=== PATIENT | female | born 1955 | race Caucasian/White ===

== ENCOUNTER 2017-08-09 19:51 | Emergency (ER) | payer MEDICARE ==
[~2017-08-09] VITALS: Ht 170.2 cm; Wt 56.8 kg
[~2017-08-09 19:51] MED LIST: GABAPENTIN 300 MG; MORPHINE 30 MG; THYROXINE 50 MCG; [UNRECOGNIZED DRUG - CODE]; [UNRECOGNIZED DRUG - OTHER]
[2017-08-09] MEDS ORDERED: normal saline 1000ML IV soln IVB ONE (20:25)
[2017-08-09] MEDS ORDERED: MORPHINE 2MG in 2ml NS syringe IV PRN (20:25)
[2017-08-09] MEDS ORDERED: ondansetron/PF 4mg/2ml inj IV ONE (20:25)
[2017-08-09 20:28] LABS: BASOPHILS # (AUTO) 0.1 X10'3 (0-0.2); BASOPHILS % (AUTO) 0.6 % (0-1); EOSINOPHILS # (AUTO) 0.1 X10'3 (0-0.9); EOSINOPHILS % (AUTO) 1.1 % (0-6); HEMATOCRIT 35.6 % (35.0-45.0); HEMOGLOBIN 12.1 g/dl (12.0-16.0); LYMPHOCYTES # (AUTO) 2.2 X10'3 (1.1-4.8); LYMPHOCYTES % (AUTO) 15.8 % (21-51); MEAN CORPUSCULAR HEMOGLOBIN 32.7 PG (27.0-31.0); MEAN CORPUSCULAR HGB CONC 34.1 % (33.0-36.5); MEAN CORPUSCULAR VOLUME 95.9 FL (78-98); MEAN PLATELET VOLUME 6.4 FL (7.4-10.4); MONOCYTES # (AUTO) 0.4 X10'3 (0-0.9); MONOCYTES % (AUTO) 3.2 % (2-12); NEUTROPHILS # (AUTO) 11.1 X10'3 (1.8-7.7); NEUTROPHILS % (AUTO) 79.3 % (42-75); PLATELET COUNT 259 X10'3 (140-440); RED BLOOD COUNT 3.71 X10'6 (4.20-5.60)
[2017-08-09] MEDS ORDERED: morphine 4 MG/ML inj SYRINge IV PRN (20:34)
[2017-08-09 20:37] LABS: INR 0.9 INR; PROTHROMBIN TIME 9.6 SECONDS (9.0-12.0)
[2017-08-09 20:44] LABS: ALANINE AMINOTRANSFERASE 24 U/L (12-78); ALBUMIN 3.1 G/DL (3.4-5.0); ALKALINE PHOSPHATASE 85 IU/L (46-116); ANION GAP 8 (8-16); ASPARTATE AMINO TRANSFERASE 23 U/L (10-37); BILIRUBIN,TOTAL 0.2 MG/DL (0.1-1.0); BLOOD UREA NITROGEN 9 MG/DL (7-18); BUN/CREATININE RATIO 12.2 (6.6-38.0); CALCIUM 8.2 MG/DL (8.5-10.1); CHLORIDE 107 MMOL/L (99-107); CREATININE 0.74 MG/DL (0.40-0.90); GLUCOSE 90 MG/DL (70-104); LIPASE 328 U/L (73-393); POTASSIUM 3.1 MMOL/L (3.5-5.1); SODIUM 143 MMOL/L (135-145); TOTAL CARBON DIOXIDE 28.4 MMOL/L (24-32); TOTAL PROTEIN 6.3 G/DL (6.4-8.2); eGFR 80 ML/MIN
[2017-08-09] MEDS ORDERED: ketorolac trometh. 30mg/ml inj. IV ONE (22:10)
[2017-08-09] MEDS ORDERED: KETO10TA2 PO (22:14)
[2017-08-09] MEDS ORDERED: HYDR-565 PO (22:14)
[2017-08-09] MEDS ORDERED: ONDA8TAB9 PO (22:14)
[2017-08-09 22:23] LABS: CLARITY,URINE CLEAR (Clear); COLOR,URINE STRAW (Yellow); GLUCOSE, URINE NEGATIVE (Neg); KETONES,URINE NEGATIVE (Neg); LEUKOCYTE ESTERASE ,URINE NEGATIVE (Neg); NITRITES, URINE NEGATIVE (Neg); OCCULT BLOOD,URINE MODERATE (Neg); PH,URINE 5.5 (4.8-8.0); PROTEIN,URINE NEGATIVE (Neg); UROBILINOGEN,URINE 0.2 E.U/dL (0.2-1.0)
[2017-08-09 22:24] LABS: UA COLLECTION TYPE CLN CATCH MIDSTREAM
[2017-08-09] MEDS ORDERED: NITR100C6 PO (22:24)
[2017-08-09 22:28] LABS: BACTERIA,URINE FEW /HPF (Neg); HYALINE CASTS 0-3 /LPF (NEGATIVE); MUCUS STRANDS FEW /LPF (Neg); RBC,URINE 0-2 /HPF (0-2); SQUAMOUS EPITHELIAL CELL,UR FEW /LPF (FEW); WBC,URINE 0-4 /HPF (0-4)
[2017-08-09 23:22] VITALS: BP 101/62
== END 2017-08-09 23:32 | disposition home or self-care (01) ==
LOC: ER 19:51
DX: N23 Unspecified renal colic (principal); N20.1 Calculus of ureter; G43.909 Migraine, unspecified, not intractable, without status migrainosus; J45.909 Unspecified asthma, uncomplicated; G89.29 Other chronic pain; Z98.890 Other specified postprocedural states; Z56.0 Unemployment, unspecified; Z88.2 Allergy status to sulfonamides; Z88.0 Allergy status to penicillin; Z91.013 Allergy to seafood; Z79.899 Other long term (current) drug therapy
CPT/HCPCS: 36415; 71045; 74176; 80053; 81001; 83690; 85025; 85610; 96361; 96374; 96375; 99285; J1885; J2270; J2405; J7030

== ENCOUNTER → 2017-10-21 | Emergency (ER) | payer MEDICARE ==
[~2017-10-21] VITALS: Ht 170.2 cm; Wt 56.0 kg
[~2017-10-21] MED LIST changes: +HYDROcodone/acetaminophen 5mg/325mg tablet PO ONE; +IBUP-1986 PO; +KETO10TA2 PO; +NITR100C6 PO; +ONDA8TAB9 PO
[2017-10-21 23:06] VITALS: BP 117/62
== END | disposition home or self-care (01) ==
LOC: ER 21:30
DX: S96.912A Strain of unspecified muscle and tendon at ankle and foot level, left foot, initial encounter (principal); G43.909 Migraine, unspecified, not intractable, without status migrainosus; J45.909 Unspecified asthma, uncomplicated; G89.29 Other chronic pain; Z90.49 Acquired absence of other specified parts of digestive tract; Z90.710 Acquired absence of both cervix and uterus; Z98.890 Other specified postprocedural states; Z56.0 Unemployment, unspecified; Z91.013 Allergy to seafood; Z88.2 Allergy status to sulfonamides; Z88.0 Allergy status to penicillin; Z88.8 Allergy status to other drugs, medicaments and biological substances; Z79.899 Other long term (current) drug therapy; W18.39XA Other fall on same level, initial encounter; Y93.01 Activity, walking, marching and hiking; Y92.89 Other specified places as the place of occurrence of the external cause; Y99.8 Other external cause status
CPT/HCPCS: 29515; 73630; 99284

== ENCOUNTER 2018-01-08 11:43 | Emergency (ER) | payer MEDICARE ==
[~2018-01-08] VITALS: Ht 170.2 cm; Wt 54.7 kg
[~2018-01-08 11:43] MED LIST changes: -HYDROcodone/acetaminophen 5mg/325mg tablet PO ONE
[2018-01-08] MEDS ORDERED: normal saline 1000ml 1,000 ML IV ONE (13:15)
[2018-01-08] MEDS ORDERED: ketorolac trometh. 30mg/ml inj. IV ONE (13:15)
[2018-01-08] MEDS ORDERED: metoclopramide 5 mg/ml inj IV ONE (13:15)
[2018-01-08] MEDS ORDERED: diphenhydrAMINE 50 mg/ml inj IV ONE (13:15)
[2018-01-08] MEDS ORDERED: acetaminophen 325mg tablet PO ONE (14:05)
[2018-01-08 14:46] VITALS: BP 115/60
== END 2018-01-08 14:45 | disposition home or self-care (01) ==
LOC: ER 11:43
DX: G43.909 Migraine, unspecified, not intractable, without status migrainosus (principal); H53.149 Visual discomfort, unspecified; J45.909 Unspecified asthma, uncomplicated; G89.29 Other chronic pain; Z90.49 Acquired absence of other specified parts of digestive tract; Z90.710 Acquired absence of both cervix and uterus; Z98.890 Other specified postprocedural states; Z56.0 Unemployment, unspecified; Z88.2 Allergy status to sulfonamides; Z88.0 Allergy status to penicillin; Z88.8 Allergy status to other drugs, medicaments and biological substances; Z91.013 Allergy to seafood; Z79.899 Other long term (current) drug therapy
CPT/HCPCS: 96374; 96375; 99284; J1200; J1885; J2765; J7030

== ENCOUNTER 2018-02-04 12:06 | Inpatient (IN) | payer MEDICARE ==
[~2018-02-04] VITALS: Ht 170.2 cm; Wt 56.8 kg
[2018-02-04] MEDS ORDERED: methylPREDNISolone sod succ 125mg/2ml vial IV ONE (12:10)
[2018-02-04] MEDS ORDERED: albuterol 2.5 MG/3 ML nebule CONTNEB PRN (12:10)
[2018-02-04 12:51] LABS: BASOPHILS % (AUTO) 0.2 % (0-1); EOSINOPHILS % (AUTO) 0.1 % (0-6); HEMATOCRIT 39.2 % (35.0-45.0); HEMOGLOBIN 12.9 g/dl (12.0-16.0); LYMPHOCYTES # (AUTO) 1.1 X10'3 (1.1-4.8); LYMPHOCYTES % (AUTO) 11.5 % (21-51); MEAN CORPUSCULAR HGB CONC 32.9 % (33.0-36.5); MEAN CORPUSCULAR VOLUME 97.2 FL (78-98); MEAN PLATELET VOLUME 6.7 FL (7.4-10.4); MONOCYTES # (AUTO) 0.2 X10'3 (0-0.9); MONOCYTES % (AUTO) 2.1 % (2-12); NEUTROPHILS # (AUTO) 8.2 X10'3 (1.8-7.7); NEUTROPHILS % (AUTO) 86.1 % (42-75); PLATELET COUNT 319 X10'3 (140-440); RED BLOOD COUNT 4.03 X10'6 (4.20-5.60); RED CELL DISTRIBUTION WIDTH 15.2 % (11.5-14.5); WHITE BLOOD COUNT 9.5 X10'3 (4.5-11.0)
[2018-02-04] MEDS ORDERED: levoFLOXACIN-Levaquin 750MG/D5 150 ML IV ONE (12:55)
[2018-02-04 13:09] LABS: ALANINE AMINOTRANSFERASE 25 U/L (12-78); ALBUMIN 3.6 G/DL (3.4-5.0); ALBUMIN/GLOBULIN RATIO 0.8 (1.1-1.5); ALKALINE PHOSPHATASE 109 IU/L (46-116); ANION GAP 11 (8-16); ASPARTATE AMINO TRANSFERASE 15 U/L (10-37); BILIRUBIN,TOTAL 0.3 MG/DL (0.1-1.0); BLOOD UREA NITROGEN 7 MG/DL (7-18); BUN/CREATININE RATIO 9.7 (6.6-38.0); CALCIUM 9.4 MG/DL (8.5-10.1); CHLORIDE 105 MMOL/L (99-107); CREATININE 0.72 MG/DL (0.40-0.90); GLUCOSE 125 MG/DL (70-104); POTASSIUM 3.8 MMOL/L (3.5-5.1); SODIUM 143 MMOL/L (135-145); TOTAL CARBON DIOXIDE 27.5 MMOL/L (24-32); TOTAL PROTEIN 7.9 G/DL (6.4-8.2); eGFR 82 ML/MIN
[2018-02-04 13:36] LABS: INR < 0.9 INR; PARTIAL THROMBOPLASTIN TIME 26 SECONDS (22-32); PROTHROMBIN TIME 9.3 SECONDS (9.0-12.0)
[2018-02-04] MEDS ORDERED: magnesium hydroxide 30ml (MOM) UD suspension PO PRN (14:25)
[2018-02-04] MEDS ORDERED: nicotine 14mg patch - 24hr TD ONE (14:25)
[2018-02-04] MEDS ORDERED: magnesium 1gm/100ml D5W IVPB 100 ML IV PRN (14:25)
[2018-02-04] MEDS ORDERED: acetaminophen 325mg tablet PO PRN (14:25)
[2018-02-04] MEDS ORDERED: potassium Cl 20 mEq SR tablet PO PRN ×2 (14:25)
[2018-02-04] MEDS ORDERED: mag hydrox/Alum hydrox/simeth 30ml oral suspension PO PRN (14:25)
[2018-02-04] MEDS ORDERED: magnesium 4gm in 100ml NS 100 ML IV PRN (14:25)
[2018-02-04] MEDS ORDERED: magnesium Cl slow-release 64mg tablet PO PRN (14:25)
[2018-02-04] MEDS ORDERED: potassium Cl 40MEQ/NS 500ml 500 ML IV PRN ×2 (14:25)
[2018-02-04] MEDS: ipratropium/albuterol 3ml nebule NEB PRN ×2 (15:47→20:15)
[2018-02-04 16:16] LABS: URINE AMPHETAMINE SCREEN NEGATIVE (Neg); URINE BARBITUATE SCREEN POSITIVE (Neg); URINE BENZODIAZEPINES SCREEN NEGATIVE (Neg); URINE CANNABINOID SCREEN NEGATIVE (Neg); URINE COCAINE SCREEN NEGATIVE (Neg); URINE METHADONE SCREEN NEGATIVE (Neg); URINE OPIATE SCREEN POSITIVE (Neg); URINE PHENCYCLIDINE SCREEN NEGATIVE (Neg)
[2018-02-04] MEDS ORDERED: LIDO700A32 (18:54)
[2018-02-04] MEDS ORDERED: LEVO25TA2 PO (18:54)
[2018-02-04] MEDS ORDERED: MORP15TA60 PO (18:54)
[2018-02-04] MEDS ORDERED: MORP30TA60 PO (18:54)
[2018-02-04] MEDS ORDERED: HYDR-3972 PO (18:54)
[2018-02-04] MEDS ORDERED: GABA-532 PO ×2 (18:54)
[2018-02-04 19:30] VITALS: BP 108/48
[2018-02-04] MEDS ORDERED: FIOCOC (20:03)
[2018-02-04] MEDS: methylPREDNISolone sod succ/PF 40mg inj. IV SCH (20:52)
[2018-02-04] MEDS ORDERED: gabapentin 300mg capsule PO SCH (21:00)
[2018-02-04] MEDS ORDERED: morphine ER 15mg tablet PO SCH (21:00)
[2018-02-04] MEDS: HYDROcodone/acetaminophen 5mg/325mg tablet PO PRN (21:23)
[2018-02-05] VITALS: BP 96/50
[2018-02-05] MEDS: HYDROcodone/acetaminophen 5mg/325mg tablet PO PRN ×4 (01:51→23:02)
[2018-02-05] MEDS: methylPREDNISolone sod succ/PF 40mg inj. IV SCH ×4 (01:51→20:29)
[2018-02-05] MEDS: ipratropium/albuterol 3ml nebule NEB PRN ×3 (05:41→20:32)
[2018-02-05 06:21] LABS: BASOPHILS % (AUTO) 0.1 % (0-1); EOSINOPHILS # (AUTO) 0.1 X10'3 (0-0.9); EOSINOPHILS % (AUTO) 0.6 % (0-6); HEMATOCRIT 35.7 % (35.0-45.0); HEMOGLOBIN 11.7 g/dl (12.0-16.0); LYMPHOCYTES # (AUTO) 0.8 X10'3 (1.1-4.8); LYMPHOCYTES % (AUTO) 6.9 % (21-51); MEAN CORPUSCULAR HEMOGLOBIN 32.1 PG (27.0-31.0); MEAN CORPUSCULAR HGB CONC 32.8 % (33.0-36.5); MEAN CORPUSCULAR VOLUME 97.8 FL (78-98); MONOCYTES # (AUTO) 0.3 X10'3 (0-0.9); MONOCYTES % (AUTO) 2.6 % (2-12); NEUTROPHILS % (AUTO) 89.8 % (42-75); PLATELET COUNT 293 X10'3 (140-440); RED BLOOD COUNT 3.66 X10'6 (4.20-5.60); RED CELL DISTRIBUTION WIDTH 14.7 % (11.5-14.5); WHITE BLOOD COUNT 11.1 X10'3 (4.5-11.0)
[2018-02-05 07:01] LABS: ALANINE AMINOTRANSFERASE 16 U/L (12-78); ALBUMIN 3.1 G/DL (3.4-5.0); ALBUMIN/GLOBULIN RATIO 0.8 (1.1-1.5); ALKALINE PHOSPHATASE 90 IU/L (46-116); ANION GAP 10 (8-16); ASPARTATE AMINO TRANSFERASE 14 U/L (10-37); BILIRUBIN,TOTAL 0.2 MG/DL (0.1-1.0); BLOOD UREA NITROGEN 13 MG/DL (7-18); BUN/CREATININE RATIO 18.1 (6.6-38.0); CALCIUM 9.2 MG/DL (8.5-10.1); CHLORIDE 104 MMOL/L (99-107); CREATININE 0.72 MG/DL (0.40-0.90); GLUCOSE 135 MG/DL (70-104); MAGNESIUM 2.5 MG/DL (1.5-2.4); POTASSIUM 4.9 MMOL/L (3.5-5.1); SODIUM 142 MMOL/L (135-145); eGFR 82 ML/MIN
[2018-02-05 07:40] VITALS: BP 95/47
[2018-02-05] MEDS: K and/or MAG REPLACEMENT MC SCH (08:00)
[2018-02-05] MEDS: enoxaparin 40mg/0.4ml syringe SUBCUT SCH (08:49)
[2018-02-05] MEDS ORDERED: pneumococcal 23-VAL P-sac vacc 25 mcg/0.5ml vial IMVAC ONE (09:00)
[2018-02-05] MEDS: levoFLOXACIN-Levaquin 750MG/D5 150 ML IV SCH (09:44)
[2018-02-05] MEDS ORDERED: LEVO50TA8 PO (11:07)
[2018-02-05 11:45] VITALS: BP 96/63
[2018-02-05] MEDS ORDERED: HYDROcodone/acetaminophen 10/325mg tab PO PRN (12:30)
[2018-02-05] MEDS: gabapentin 300mg capsule PO SCH (12:53)
[2018-02-05] MEDS: morphine ER 30mg tablet PO SCH (12:53)
[2018-02-05] MEDS: codeine/butalbital/acetaminophen/caffeine capsule PO PRN (14:44)
[2018-02-05 18:00] VITALS: BP 112/59
[2018-02-05] MEDS ORDERED: codeine/butalbital/acetaminophen/caffeine capsule PO ONE (20:10)
[2018-02-05] MEDS ORDERED: morphine ER 15mg tablet PO SCH (21:00)
[2018-02-05] MEDS ORDERED: gabapentin 300mg capsule PO SCH (21:00)
[2018-02-05] MEDS: ondansetron/PF 4mg/2ml inj IV PRN (23:01)
[2018-02-06] VITALS: BP 100/55
[2018-02-06] MEDS: methylPREDNISolone sod succ/PF 40mg inj. IV SCH ×3 (02:30→13:21)
[2018-02-06] MEDS: codeine/butalbital/acetaminophen/caffeine capsule PO PRN (03:18)
[2018-02-06 04:10] LABS: BASOPHILS % (AUTO) 0.2 % (0-1); EOSINOPHILS # (AUTO) 0.2 X10'3 (0-0.9); EOSINOPHILS % (AUTO) 1.4 % (0-6); HEMATOCRIT 33.6 % (35.0-45.0); HEMOGLOBIN 11.2 g/dl (12.0-16.0); LYMPHOCYTES # (AUTO) 1.1 X10'3 (1.1-4.8); LYMPHOCYTES % (AUTO) 7.8 % (21-51); MEAN CORPUSCULAR HEMOGLOBIN 32.2 PG (27.0-31.0); MEAN CORPUSCULAR HGB CONC 33.3 % (33.0-36.5); MEAN CORPUSCULAR VOLUME 96.8 FL (78-98); MEAN PLATELET VOLUME 6.6 FL (7.4-10.4); MONOCYTES # (AUTO) 0.5 X10'3 (0-0.9); MONOCYTES % (AUTO) 3.2 % (2-12); NEUTROPHILS # (AUTO) 12.5 X10'3 (1.8-7.7); NEUTROPHILS % (AUTO) 87.4 % (42-75); PLATELET COUNT 290 X10'3 (140-440); RED BLOOD COUNT 3.47 X10'6 (4.20-5.60); RED CELL DISTRIBUTION WIDTH 14.4 % (11.5-14.5); WHITE BLOOD COUNT 14.3 X10'3 (4.5-11.0)
[2018-02-06 04:22] LABS: ALANINE AMINOTRANSFERASE 18 U/L (12-78); ALBUMIN 2.8 G/DL (3.4-5.0); ALBUMIN/GLOBULIN RATIO 0.8 (1.1-1.5); ALKALINE PHOSPHATASE 92 IU/L (46-116); ANION GAP 4 (8-16); ASPARTATE AMINO TRANSFERASE 10 U/L (10-37); BILIRUBIN,TOTAL 0.2 MG/DL (0.1-1.0); BLOOD UREA NITROGEN 22 MG/DL (7-18); BUN/CREATININE RATIO 29.3 (6.6-38.0); CALCIUM 8.8 MG/DL (8.5-10.1); CHLORIDE 104 MMOL/L (99-107); CREATININE 0.75 MG/DL (0.40-0.90); GLUCOSE 130 MG/DL (70-104); MAGNESIUM 2.3 MG/DL (1.5-2.4); POTASSIUM 4.8 MMOL/L (3.5-5.1); SODIUM 138 MMOL/L (135-145); TOTAL CARBON DIOXIDE 30.4 MMOL/L (24-32); TOTAL PROTEIN 6.4 G/DL (6.4-8.2); eGFR 78 ML/MIN
[2018-02-06] MEDS ORDERED: levoTHYROXINE 25mcg tablet PO SCH (07:00)
[2018-02-06] MEDS ORDERED: pantoprazole 40mg Tablet.DR PO SCH (07:30)
[2018-02-06 08:00] VITALS: BP 94/47
[2018-02-06] MEDS: K and/or MAG REPLACEMENT MC SCH (08:00)
[2018-02-06] MEDS: gabapentin 300mg capsule PO SCH (08:35)
[2018-02-06] MEDS: morphine ER 30mg tablet PO SCH (08:35)
[2018-02-06] MEDS: levoFLOXACIN-Levaquin 750MG/D5 150 ML IV SCH (08:36)
[2018-02-06] MEDS: enoxaparin 40mg/0.4ml syringe SUBCUT SCH (08:36)
[2018-02-06] MEDS ORDERED: codeine/butalbital/acetaminophen/caffeine capsule PO PRN ×2 (11:30→16:15)
[2018-02-06 11:40] VITALS: BP 103/48
[2018-02-06] MEDS: ondansetron/PF 4mg/2ml inj IV PRN (11:55)
== END 2018-02-06 17:12 | disposition left against medical advice (07) | DRG 189 ==
LOC: ER 12:06 → ED HOLD 14:21 → SUR 3N 19:45
PROVIDERS: ADMIT Internal Medicine; ATTEND Internal Medicine
PROC: 3E02340 Introduction of Influenza Vaccine into Muscle, Percutaneous Approach (ICD-10-PCS; principal; 2018-02-05)
PROC: 3E0234Z Introduction of Serum, Toxoid and Vaccine into Muscle, Percutaneous Approach (ICD-10-PCS; 2018-02-05)
DX: J96.01 Acute respiratory failure with hypoxia (principal); J44.1 Chronic obstructive pulmonary disease with (acute) exacerbation; F11.20 Opioid dependence, uncomplicated; J45.901 Unspecified asthma with (acute) exacerbation; E03.9 Hypothyroidism, unspecified; G89.29 Other chronic pain; M54.2 Cervicalgia; Z53.21 Procedure and treatment not carried out due to patient leaving prior to being seen by health care provider; M54.9 Dorsalgia, unspecified; F17.210 Nicotine dependence, cigarettes, uncomplicated; G43.909 Migraine, unspecified, not intractable, without status migrainosus; I50.9 Heart failure, unspecified; Z90.49 Acquired absence of other specified parts of digestive tract; Z90.710 Acquired absence of both cervix and uterus; Z23 Encounter for immunization; Z88.2 Allergy status to sulfonamides; Z88.8 Allergy status to other drugs, medicaments and biological substances; Z88.0 Allergy status to penicillin; Z91.013 Allergy to seafood; Z79.899 Other long term (current) drug therapy; Z71.6 Tobacco abuse counseling
CPT/HCPCS: 36415; 71045; 80053; 80305; 83735; 84484; 85025; 85610; 85730; 90732; 93005; 94640; 94667; 94668; 94760; 96374; 99285; J1650; J1956; J2405; J2920; J2930; Q2037

== ENCOUNTER 2019-01-24 20:07 | Inpatient (IN) | payer MEDICARE ==
[~2019-01-24] VITALS: Ht 170.2 cm; Wt 64.3 kg
[~2019-01-24 20:07] MED LIST changes: +FIOCOC; +GABA-532 PO; -GABAPENTIN 300 MG; +HYDR-3972 PO; -IBUP-1986 PO; -KETO10TA2 PO; +LEVO50TA8 PO; +LIDO700A32; +MORP15TA60 PO; +MORP30TA60 PO; -MORPHINE 30 MG; -NITR100C6 PO; -ONDA8TAB9 PO; -THYROXINE 50 MCG; -[UNRECOGNIZED DRUG - CODE]; -[UNRECOGNIZED DRUG - OTHER]
[2019-01-24] MEDS ORDERED: normal saline 1000ML IV soln IVB ONE (20:35)
[2019-01-24] MEDS ORDERED: ondansetron/PF 4mg/2ml inj IV ONE (20:35)
[2019-01-24 20:41] LABS: BASOPHILS # (AUTO) 0.1 X10'3 (0-0.2); BASOPHILS % (AUTO) 0.7 % (0-1); EOSINOPHILS # (AUTO) 0.1 X10'3 (0-0.9); EOSINOPHILS % (AUTO) 0.9 % (0-6); HEMATOCRIT 36.4 % (35.0-45.0); HEMOGLOBIN 12.5 g/dl (12.0-16.0); LYMPHOCYTES # (AUTO) 2.8 X10'3 (1.1-4.8); LYMPHOCYTES % (AUTO) 25.8 % (21-51); MEAN CORPUSCULAR HEMOGLOBIN 32.3 PG (27.0-31.0); MEAN CORPUSCULAR HGB CONC 34.3 g/dL (33.0-36.5); MEAN CORPUSCULAR VOLUME 94.3 FL (78-98); MEAN PLATELET VOLUME 6.5 FL (7.4-10.4); MONOCYTES # (AUTO) 0.6 X10'3 (0-0.9); MONOCYTES % (AUTO) 5.2 % (2-12); NEUTROPHILS # (AUTO) 7.3 X10'3 (1.8-7.7); NEUTROPHILS % (AUTO) 67.4 % (42-75); PLATELET COUNT 288 X10'3 (140-440); RED BLOOD COUNT 3.86 X10'6 (4.20-5.60); RED CELL DISTRIBUTION WIDTH 14.3 % (11.5-14.5); WHITE BLOOD COUNT 10.8 X10'3 (4.5-11.0)
[2019-01-24] MEDS: morphine 4 MG/ML inj SYRINge IV PRN ×2 (20:41→21:05)
[2019-01-24] MEDS ORDERED: iohexol 350MG/ML 100ml bottle IV ONE (20:42)
[2019-01-24 20:45] LABS: PARTIAL THROMBOPLASTIN TIME 26 SECONDS (22-32)
[2019-01-24 20:47] LABS: ALANINE AMINOTRANSFERASE 16 U/L (12-78); ALBUMIN 3.3 G/DL (3.4-5.0); ALKALINE PHOSPHATASE 72 IU/L (46-116); ANION GAP 8 (8-16); ASPARTATE AMINO TRANSFERASE 16 U/L (10-37); BILIRUBIN,TOTAL 0.3 MG/DL (0.1-1.0); BLOOD UREA NITROGEN 17 MG/DL (7-18); BUN/CREATININE RATIO 21.5 (6.6-38.0); CALCIUM 8.2 MG/DL (8.5-10.1); CHLORIDE 106 MMOL/L (99-107); CREATININE 0.79 MG/DL (0.40-0.90); GLUCOSE 109 MG/DL (70-104); POTASSIUM 3.9 MMOL/L (3.5-5.1); SODIUM 139 MMOL/L (135-145); TOTAL CARBON DIOXIDE 24.9 MMOL/L (24-32); TOTAL PROTEIN 6.7 G/DL (6.4-8.2); eGFR 74 ML/MIN
--- NOTE | 2019-01-24 21:05 | NUR ---
TO CT SCAN
--- NOTE | 2019-01-24 21:06 | NUR ---
PER DR PATSY SAMUELS TO GO UNMONITORED
[2019-01-24] MEDS ORDERED: ALBU18HF2 INH (21:58)
[2019-01-24] MEDS ORDERED: PROM25TA14 PO (21:58)
[2019-01-24] MEDS ORDERED: FOLI200T11 PO (21:58)
[2019-01-24] MEDS ORDERED: BUSP5TAB3 PO (21:58)
[2019-01-24] MEDS ORDERED: AMIT-189 PO (21:58)
[2019-01-24] MEDS ORDERED: magnesium hydroxide 30ml (MOM) UD suspension PO PRN (22:10)
[2019-01-24] MEDS ORDERED: HYDROcodone/acetaminophen 5mg/325mg tablet PO PRN (22:10)
[2019-01-24] MEDS ORDERED: magnesium Cl slow-release 64mg tablet PO PRN (22:10)
[2019-01-24] MEDS ORDERED: potassium CL 10mEq/100ml bag 100 ML IV PRN ×2 (22:10)
[2019-01-24] MEDS ORDERED: potassium Cl 20 mEq SR tablet PO PRN ×2 (22:10)
[2019-01-24] MEDS ORDERED: ondansetron/PF 4mg/2ml inj IV PRN (22:10)
[2019-01-24] MEDS ORDERED: acetaminophen 325mg tablet PO PRN ×2 (22:10)
[2019-01-24] MEDS ORDERED: mag hydrox/Alum hydrox/simeth 30ml oral suspension PO PRN (22:10)
[2019-01-24] MEDS ORDERED: magnesium 4gm in 100ml NS 100 ML IV PRN (22:10)
[2019-01-24] MEDS ORDERED: magnesium 2GM in 50ml NS 50 ML IV PRN (22:10)
[2019-01-24] MEDS ORDERED: morphine 2 MG/ML inj. syringe IV PRN ×2 (22:10)
[2019-01-24] MEDS ORDERED: nitroGLYCERIN 0.4mg SUBLingual tab SL PRN ×2 (22:10→23:00)
[2019-01-24] MEDS ORDERED: metoprolol tartrate 1mg/ml inj IV PRN (23:00)
[2019-01-24] MEDS ORDERED: aminophylline 250mg/10ml inj. IV PRN (23:00)
[2019-01-24] MEDS ORDERED: regadenoson 0.4mg/5ml syringe IV PRN (23:00)
[2019-01-24] MEDS ORDERED: proMETHazine 25mg tablet PO PRN (23:00)
--- NOTE | 2019-01-24 23:46 | NUR ---
PHONE REPORT TO KEITH KOVACS: PATIENT TO GO TO ROOM 355B WITH RN MONITORED ON YANG
[2019-01-25] VITALS (12 sets, daily range): BP systolic 90–129; BP diastolic 46–82
[2019-01-25] MEDS ORDERED: nitroGLYCERIN 0.4mg/hour patch TD ONE (01:05)
[2019-01-25] MEDS ORDERED: enoxaparin 60mg/0.6ml syringe SUBCUT SCH (01:05)
[2019-01-25] MEDS ORDERED: nitroGLYCERIN 1gm ointment UD TP ONE (01:05)
[2019-01-25] MEDS ORDERED: nitroGLYCERIN 0.4mg SUBLingual tab SL PRN (01:05)
[2019-01-25] MEDS ORDERED: morphine 2 MG/ML inj. syringe IV PRN ×2 (01:10)
--- NOTE | 2019-01-25 01:12 | NUR ---
pt reports 8/10 chest pain. MD notified. Ordered SL nitro, nitro paste, and EKG. Changed morphine order from q4h to q2hr. MD stated to bring EKG for viewing if ST elevation. By the time I arrived to the room to administer nitro, pt chest pain had decreased to a 4/10. SL nitro not administered. MD arrived to floor. EKG reviewed. Agreed, no SL nitro. Would like lovenox and nitro patch. Next time patient c/o chest pain would like one time malox administered. If malox helps alleviate pain, would like one time dose 40mg protonix. MD in patient room discussing condition with patient and RN.
[2019-01-25 02:48] LABS: BASOPHILS # (AUTO) 0.1 X10'3 (0-0.2); BASOPHILS % (AUTO) 0.7 % (0-1); EOSINOPHILS # (AUTO) 0.1 X10'3 (0-0.9); EOSINOPHILS % (AUTO) 1.4 % (0-6); HEMATOCRIT 35.8 % (35.0-45.0); HEMOGLOBIN 12.1 g/dl (12.0-16.0); LYMPHOCYTES # (AUTO) 2.5 X10'3 (1.1-4.8); LYMPHOCYTES % (AUTO) 29.6 % (21-51); MEAN CORPUSCULAR HEMOGLOBIN 32.5 PG (27.0-31.0); MEAN CORPUSCULAR HGB CONC 33.7 g/dL (33.0-36.5); MEAN CORPUSCULAR VOLUME 96.5 FL (78-98); MEAN PLATELET VOLUME 6.2 FL (7.4-10.4); MONOCYTES # (AUTO) 0.5 X10'3 (0-0.9); MONOCYTES % (AUTO) 5.3 % (2-12); NEUTROPHILS # (AUTO) 5.4 X10'3 (1.8-7.7); PLATELET COUNT 245 X10'3 (140-440); RED BLOOD COUNT 3.71 X10'6 (4.20-5.60); RED CELL DISTRIBUTION WIDTH 14.5 % (11.5-14.5); WHITE BLOOD COUNT 8.6 X10'3 (4.5-11.0)
[2019-01-25 03:04] LABS: ALBUMIN 3.1 G/DL (3.4-5.0); ANION GAP 4 (8-16); BLOOD UREA NITROGEN 14 MG/DL (7-18); BUN/CREATININE RATIO 19.7 (6.6-38.0); CALCIUM 8.2 MG/DL (8.5-10.1); CHLORIDE 109 MMOL/L (99-107); CHOL/HDL RATIO 2.6 (0.00-4.99); CHOLESTEROL 131 MG/DL (0-200); CREATININE 0.71 MG/DL (0.40-0.90); GLUCOSE 95 MG/DL (70-104); HDL CHOLESTEROL 50 MG/DL (35-60); LDL CHOLESTEROL 80 MG/DL (50-100); MAGNESIUM 2.6 MG/DL (1.5-2.4); POTASSIUM 4.4 MMOL/L (3.5-5.1); SODIUM 141 MMOL/L (135-145); TOTAL CARBON DIOXIDE 28.1 MMOL/L (24-32); TRIGLYCERIDES 45 MG/DL (20-135); eGFR 83 ML/MIN
[2019-01-25] MEDS ORDERED: normal saline 1000ml 1,000 ML IV SCH (03:15)
--- NOTE | 2019-01-25 06:39 | NUR ---
Problems reprioritized. Patient report given, questions answered & plan of care reviewed with FERMÍN Daugherty.
--- NOTE | 2019-01-25 06:48 | NUR ---
Patient in room [place] [facility]. I have received report from Amy Eugene RN and had the opportunity to ask questions and assume patient care.
--- NOTE | 2019-01-25 07:57 | NUR ---
Patient complaining of headache, Tylenol 650mg PO given. I was going to take the nitro patch off because of headache plus low BP this am 90/50 but I could not find the patch on patient's shoulders or anywhere.
[2019-01-25] MEDS ORDERED: K and/or MAG REPLACEMENT MC SCH (08:00)
[2019-01-25] MEDS ORDERED: busPIRone 5mg tablet PO SCH (08:00)
[2019-01-25] MEDS ORDERED: multivitamins, therapeutics tablet PO SCH (08:00)
[2019-01-25] MEDS: morphine ER 30mg tablet PO SCH ×2 (08:00→11:41)
[2019-01-25] MEDS ORDERED: gabapentin 300mg capsule PO SCH ×2 (08:00→21:00)
[2019-01-25] MEDS ORDERED: aspirin 325mg tablet, delayed-release (Ecotrin) PO SCH (08:00)
[2019-01-25] MEDS ORDERED: enoxaparin 40mg/0.4ml syringe SQ SCH (08:00)
[2019-01-25] MEDS ORDERED: levoTHYROXINE 25mcg tablet PO SCH (08:00)
--- NOTE | 2019-01-25 08:42 | NUR ---
Patient went to [facility], monitoring analyst notified
[2019-01-25] MEDS ORDERED: CARV3.12 PO (13:09)
[2019-01-25] MEDS ORDERED: ASPI-611 PO (13:09)
[2019-01-25] MEDS ORDERED: PANT-47 PO (13:22)
--- NOTE | 2019-01-25 14:50 | NUR ---
Discharged patient home accompanied by her . Patient verbalized understanding of all instructions made. Peripheral IV catheter removed, tip intact. Instructed patient to ensure she has all her belongings with her. [facility]
[2019-01-25] MEDS ORDERED: amitriptyline 50mg tablet PO SCH (21:00)
[2019-01-25] MEDS ORDERED: morphine ER 15mg tablet PO SCH (21:00)
== END 2019-01-25 15:14 | disposition home or self-care (01) | DRG 392 ==
LOC: ER 20:08 → ED HOLD 22:17 → SUR 3N 23:59 → CMPBEDREQ 01-25 00:02 → OBSVTOIN 01-25 06:59
PROVIDERS: ADMIT Hospitalist; ATTEND Family Medicine
PROC: B32T1ZZ Computerized Tomography (CT Scan) of Left Pulmonary Artery using Low Osmolar Contrast (ICD-10-PCS; 2019-01-24)
PROC: B3201ZZ Computerized Tomography (CT Scan) of Thoracic Aorta using Low Osmolar Contrast (ICD-10-PCS; 2019-01-24)
PROC: B32S1ZZ Computerized Tomography (CT Scan) of Right Pulmonary Artery using Low Osmolar Contrast (ICD-10-PCS; 2019-01-24)
PROC: 4A02XM4 Measurement of Cardiac Total Activity, External Approach (ICD-10-PCS; principal; 2019-01-25)
PROC: 3E033HZ Introduction of Radioactive Substance into Peripheral Vein, Percutaneous Approach (ICD-10-PCS; 2019-01-25)
DX: K21.9 Gastro-esophageal reflux disease without esophagitis (principal); E03.9 Hypothyroidism, unspecified; F41.9 Anxiety disorder, unspecified; G89.4 Chronic pain syndrome; J43.9 Emphysema, unspecified; I08.1 Rheumatic disorders of both mitral and tricuspid valves; G43.909 Migraine, unspecified, not intractable, without status migrainosus; M54.9 Dorsalgia, unspecified; Z79.890 Hormone replacement therapy; Z88.8 Allergy status to other drugs, medicaments and biological substances; Z88.0 Allergy status to penicillin; Z91.013 Allergy to seafood; Z90.49 Acquired absence of other specified parts of digestive tract; Z90.710 Acquired absence of both cervix and uterus; Z56.0 Unemployment, unspecified
CPT/HCPCS: 36415; 71045; 71275; 74175; 78452; 80048; 80053; 80061; 83735; 83880; 84484; 85025; 85610; 85730; 87081; 93005; 93017; 93306; 99285; A9500; G0378; J0280; J1650; J2270; J2405; J2785; J7030; Q0169; Q9967

== ENCOUNTER 2019-02-13 12:20 | Emergency (ER) | payer MEDICARE ==
[~2019-02-13] VITALS: Ht 170.2 cm; Wt 59.1 kg
[~2019-02-13 12:20] MED LIST changes: +ALBU18HF2 INH; +AMIT-189 PO; +ASPI-611 PO; +BUSP5TAB3 PO; +CARV3.12 PO; -FIOCOC; +FOLI200T11 PO; +PANT-47 PO; +PROM25TA14 PO
[2019-02-13 12:50] LABS: BASOPHILS % (AUTO) 0.6 % (0-1); EOSINOPHILS # (AUTO) 0.1 X10'3 (0-0.9); EOSINOPHILS % (AUTO) 1.3 % (0-6); HEMOGLOBIN 13.1 g/dl (12.0-16.0); LYMPHOCYTES # (AUTO) 2.3 X10'3 (1.1-4.8); LYMPHOCYTES % (AUTO) 34.6 % (21-51); MEAN CORPUSCULAR HEMOGLOBIN 32.6 PG (27.0-31.0); MEAN CORPUSCULAR HGB CONC 34.4 g/dL (33.0-36.5); MEAN CORPUSCULAR VOLUME 94.9 FL (78-98); MEAN PLATELET VOLUME 6.4 FL (7.4-10.4); MONOCYTES # (AUTO) 0.4 X10'3 (0-0.9); NEUTROPHILS # (AUTO) 3.8 X10'3 (1.8-7.7); NEUTROPHILS % (AUTO) 57.5 % (42-75); PLATELET COUNT 270 X10'3 (140-440); RED BLOOD COUNT 4.01 X10'6 (4.20-5.60); RED CELL DISTRIBUTION WIDTH 14.1 % (11.5-14.5); WHITE BLOOD COUNT 6.6 X10'3 (4.5-11.0)
[2019-02-13 12:59] LABS: PARTIAL THROMBOPLASTIN TIME 27 SECONDS (22-32)
[2019-02-13 13:24] LABS: ALANINE AMINOTRANSFERASE 20 U/L (12-78); ALBUMIN 3.8 G/DL (3.4-5.0); ALKALINE PHOSPHATASE 89 IU/L (46-116); ANION GAP 10 (8-16); ASPARTATE AMINO TRANSFERASE 22 U/L (10-37); BILIRUBIN,TOTAL 0.5 MG/DL (0.1-1.0); BLOOD UREA NITROGEN 12 MG/DL (7-18); BUN/CREATININE RATIO 15.2 (6.6-38.0); CALCIUM 9.2 MG/DL (8.5-10.1); CHLORIDE 106 MMOL/L (99-107); CREATININE 0.79 MG/DL (0.40-0.90); GLUCOSE 80 MG/DL (70-104); POTASSIUM 3.8 MMOL/L (3.5-5.1); SODIUM 143 MMOL/L (135-145); TOTAL CARBON DIOXIDE 27.3 MMOL/L (24-32); TOTAL PROTEIN 7.6 G/DL (6.4-8.2); eGFR 74 ML/MIN
[2019-02-13] MEDS ORDERED: LORazepam 2 mg/ml vial IV ONE (13:40)
[2019-02-13 14:50] VITALS: BP 114/72
== END 2019-02-13 15:04 | disposition home or self-care (01) ==
LOC: ER 15:03
DX: R07.89 Other chest pain (principal); F41.9 Anxiety disorder, unspecified; G43.909 Migraine, unspecified, not intractable, without status migrainosus; J44.9 Chronic obstructive pulmonary disease, unspecified; E03.9 Hypothyroidism, unspecified; G89.29 Other chronic pain; Z90.49 Acquired absence of other specified parts of digestive tract; Z90.710 Acquired absence of both cervix and uterus; Z98.890 Other specified postprocedural states; Z56.0 Unemployment, unspecified; Z91.013 Allergy to seafood; Z88.2 Allergy status to sulfonamides; Z88.0 Allergy status to penicillin; Z79.899 Other long term (current) drug therapy
CPT/HCPCS: 36415; 71045; 80053; 84484; 85025; 85610; 85730; 93005; 96374; 99284; J2060

== ENCOUNTER 2019-04-15 10:32 | Emergency (ER) | payer MEDICARE ==
[~2019-04-15] VITALS: Ht 170.2 cm; Wt 63.0 kg
[~2019-04-15 10:32] MED LIST changes: -ALBU18HF2 INH; -ASPI-611 PO; -CARV3.12 PO; -PANT-47 PO
[2019-04-15] MEDS ORDERED: dexamethasone sod phosphate 10mg/ml inj IV STA (10:47)
[2019-04-15] MEDS ORDERED: LORazepam 2 mg/ml vial IV ONE (10:50)
[2019-04-15] MEDS ORDERED: metoclopramide 5 mg/ml inj IV ONE (10:50)
[2019-04-15] MEDS ORDERED: ketorolac trometh. 30mg/ml inj. IV ONE (10:50)
[2019-04-15] MEDS ORDERED: normal saline 1000ML IV soln IVB ONE (10:50)
[2019-04-15] MEDS ORDERED: diphenhydrAMINE 50 mg/ml inj IV ONE (10:50)
[2019-04-15 12:15] VITALS: BP 100/63
== END 2019-04-15 12:18 | disposition home or self-care (01) ==
LOC: ER 10:33
DX: G43.909 Migraine, unspecified, not intractable, without status migrainosus (principal); J44.9 Chronic obstructive pulmonary disease, unspecified; E03.9 Hypothyroidism, unspecified; G89.29 Other chronic pain; Z56.0 Unemployment, unspecified; Z90.49 Acquired absence of other specified parts of digestive tract; Z90.710 Acquired absence of both cervix and uterus; Z98.890 Other specified postprocedural states; Z91.013 Allergy to seafood; Z88.2 Allergy status to sulfonamides; Z88.6 Allergy status to analgesic agent; Z88.0 Allergy status to penicillin; Z79.899 Other long term (current) drug therapy
CPT/HCPCS: 96374; 96375; 99283; J1100; J1200; J1885; J2060; J2765; J7030

== ENCOUNTER 2019-06-18 15:03 | Emergency (ER) | payer MEDICARE ==
[~2019-06-18] VITALS: Ht 170.2 cm; Wt 62.0 kg
[2019-06-18 15:08] VITALS: BP 121/67
[2019-06-18] MEDS ORDERED: DOXYCYCLINE 100MG CAPSULE PO STA (16:21)
== END 2019-06-18 16:58 | disposition home or self-care (01) ==
LOC: ER 15:04
DX: S40.261A Insect bite (nonvenomous) of right shoulder, initial encounter (principal); J44.9 Chronic obstructive pulmonary disease, unspecified; E03.9 Hypothyroidism, unspecified; G89.29 Other chronic pain; M54.9 Dorsalgia, unspecified; G43.909 Migraine, unspecified, not intractable, without status migrainosus; Z88.0 Allergy status to penicillin; Z79.2 Long term (current) use of antibiotics; Z79.899 Other long term (current) drug therapy; Z88.2 Allergy status to sulfonamides; Z88.8 Allergy status to other drugs, medicaments and biological substances; Z91.013 Allergy to seafood; Z56.0 Unemployment, unspecified; Z90.49 Acquired absence of other specified parts of digestive tract; W57.XXXA Bitten or stung by nonvenomous insect and other nonvenomous arthropods, initial encounter; Z90.710 Acquired absence of both cervix and uterus; Y93.89 Activity, other specified; Y92.89 Other specified places as the place of occurrence of the external cause; Y99.8 Other external cause status
CPT/HCPCS: 99283

== ENCOUNTER 2020-10-17 13:56 | Emergency (ER) | payer MEDICARE ==
[~2020-10-17] VITALS: Ht 170.2 cm; Wt 57.1 kg
[2020-10-17] MEDS ORDERED: ketorolac trometh. 30mg/ml inj. IM ONE (16:35)
[2020-10-17] MEDS ORDERED: diphenhydrAMINE 50 mg/ml inj IM ONE (16:35)
[2020-10-17] MEDS ORDERED: proCHLORperazine 10 MG/2 ml inj IM ONE (16:35)
[2020-10-17 19:10] VITALS: BP 122/66
== END 2020-10-17 21:05 | disposition left against medical advice (07) ==
LOC: ER 13:57
DX: G43.909 Migraine, unspecified, not intractable, without status migrainosus (principal); R11.2 Nausea with vomiting, unspecified; J44.9 Chronic obstructive pulmonary disease, unspecified; E03.9 Hypothyroidism, unspecified; G89.29 Other chronic pain; Z87.01 Personal history of pneumonia (recurrent); Z90.89 Acquired absence of other organs; Z90.710 Acquired absence of both cervix and uterus; Z98.890 Other specified postprocedural states; Z56.0 Unemployment, unspecified; Z91.013 Allergy to seafood; Z88.2 Allergy status to sulfonamides; Z88.8 Allergy status to other drugs, medicaments and biological substances; Z88.0 Allergy status to penicillin; Z79.899 Other long term (current) drug therapy
CPT/HCPCS: 96372; 99284; J0780; J1200; J1885

== ENCOUNTER 2021-04-10 12:19 | Emergency (ER) | payer MEDICARE ==
[~2021-04-10] VITALS: Ht 170.2 cm; Wt 61.0 kg
[2021-04-10 12:46] VITALS: BP 135/63
== END 2021-04-10 16:18 | disposition left against medical advice (07) ==
LOC: ER 12:19
DX: R20.0 Anesthesia of skin (principal); M79.671 Pain in right foot; G43.909 Migraine, unspecified, not intractable, without status migrainosus; J44.9 Chronic obstructive pulmonary disease, unspecified; E03.9 Hypothyroidism, unspecified; G89.29 Other chronic pain; Z87.01 Personal history of pneumonia (recurrent); Z90.89 Acquired absence of other organs; Z90.710 Acquired absence of both cervix and uterus; Z98.890 Other specified postprocedural states; Z56.0 Unemployment, unspecified; Z88.2 Allergy status to sulfonamides; Z88.0 Allergy status to penicillin; Z88.8 Allergy status to other drugs, medicaments and biological substances; Z91.013 Allergy to seafood; Z79.899 Other long term (current) drug therapy
CPT/HCPCS: 99281

== ENCOUNTER 2023-07-25 17:19 | Emergency (ER) | payer MEDICARE ==
[~2023-07-25] VITALS: Ht 170.2 cm; Wt 68.2 kg
[~2023-07-25 17:19] MED LIST changes: -AMIT-189 PO; +AMIT50TA15 PO
[2023-07-25] MEDS ORDERED: CLIN300C70 PO (17:54)
[2023-07-25] MEDS ORDERED: DOXY-356 PO (17:54)
[2023-07-25] MEDS: clindamycin 150mg capsule PO ONE (17:57)
[2023-07-25] MEDS: DOXYCYCLINE 100MG CAPSULE PO STA (17:57)
[2023-07-25 18:04] VITALS: BP 128/58; PULSE 76; RESP 16; TEMP 98.2; O2SAT 94
== END 2023-07-25 18:06 | disposition home or self-care (01) ==
LOC: ER 17:19
DX: S81.852A Open bite, left lower leg, initial encounter (principal); Z88.2 Allergy status to sulfonamides; Z88.8 Allergy status to other drugs, medicaments and biological substances; Z88.0 Allergy status to penicillin; Z91.013 Allergy to seafood; J44.9 Chronic obstructive pulmonary disease, unspecified; E03.9 Hypothyroidism, unspecified; G89.29 Other chronic pain; Z90.49 Acquired absence of other specified parts of digestive tract; Z90.710 Acquired absence of both cervix and uterus; G43.909 Migraine, unspecified, not intractable, without status migrainosus; W55.01XA Bitten by cat, initial encounter; Y93.89 Activity, other specified; Y92.89 Other specified places as the place of occurrence of the external cause; Y99.8 Other external cause status
CPT/HCPCS: 99283

== ENCOUNTER 2023-11-19 15:48 | Emergency (ER) | payer MEDICARE ==
[~2023-11-19] VITALS: Ht 172.7 cm; Wt 65.9 kg
[2023-11-19 17:20] VITALS: BP 144/67; PULSE 86; RESP 15; TEMP 98.4; O2SAT 99
== END 2023-11-19 17:21 | disposition home or self-care (01) ==
LOC: ER 15:49
DX: M79.644 Pain in right finger(s) (principal); G43.909 Migraine, unspecified, not intractable, without status migrainosus; J45.909 Unspecified asthma, uncomplicated; J44.9 Chronic obstructive pulmonary disease, unspecified; E03.9 Hypothyroidism, unspecified; G89.29 Other chronic pain; M54.9 Dorsalgia, unspecified; Z90.49 Acquired absence of other specified parts of digestive tract; Z90.710 Acquired absence of both cervix and uterus; Z56.0 Unemployment, unspecified; Z98.890 Other specified postprocedural states; Z88.2 Allergy status to sulfonamides; Z88.8 Allergy status to other drugs, medicaments and biological substances; Z88.0 Allergy status to penicillin; Z91.013 Allergy to seafood; Z79.899 Other long term (current) drug therapy
CPT/HCPCS: 73130; 99283